=== PATIENT | male | born 1945 | race Caucasian/White ===

== ENCOUNTER 2017-12-17 14:20 | Emergency (ER) | payer MEDICARE ==
[~2017-12-17] VITALS: Ht 172.7 cm; Wt 72.6 kg
[2017-12-17] MEDS ORDERED: MINERAL OIL 132 ML BTL PR ONE (15:00)
--- NOTE | 2017-12-17 16:54 | Diagnostic Imaging Report ---
PROCEDURE:X-RAY ABDOMEN - KUB COMPARISON:None. INDICATIONS:CONSTIPATION X 3 DAYS CANNOT URINATE X 1 DAY FINDINGS: Medical devices: Looped catheter in the epigastric region to the right of L1. Bowel: Bowel gas pattern is unremarkable. There is a large amount of stool in the rectum. No significant gaseous dilatation of small bowel or large bowel. No pneumatosis. Calcifications: No calcifications over the renal shadows or along expected course of the ureters. Free air: None. Cardiomegaly: None. Lung bases: Clear. Bones: No focal osseous lesions. CONCLUSION: Fecal impaction. No evidence of bowel obstruction. Dictated by: Bereket Reyes M.D. on 12/17/2017 at 17:00 Electronically approved by: Bereket Reyes M.D. on 12/17/2017 at 17:00
[2017-12-17 19:16] VITALS: BP 116/84
== END 2017-12-17 19:22 | disposition home or self-care (01) ==
LOC: ER 14:20
DX: R10.33 Periumbilical pain (principal); R10.84 Generalized abdominal pain; K59.00 Constipation, unspecified
CPT/HCPCS: 74018; 99283